=== PATIENT | female | born 1960 | race Two or more races ===

== ENCOUNTER → 2020-11-03 | Outpatient (CLI) | payer OTHER ==
[~2020-11-03] MED LIST: AMLO-150 PO; ATOR20TA37 PO; RABE20TA29 PO
== END | disposition home or self-care (01) ==
LOC: STAR 14:08
PROVIDERS: ATTEND Surgery
DX: Z01.818 Encounter for other preprocedural examination (principal); K40.20 Bilateral inguinal hernia, without obstruction or gangrene, not specified as recurrent; Z20.822 Contact with and (suspected) exposure to COVID-19
CPT/HCPCS: 87635; 93005

== ENCOUNTER 2020-11-09 10:27 | Day surgery (SDC) | payer OTHER ==
[~2020-11-09] VITALS: Ht 152.4 cm; Wt 73.7 kg
[2020-11-09 11:12] VITALS: BP 130/79
[2020-11-09] MEDS ORDERED: ACETAMINOPHEN 500 MG TABLET PO ONE (11:30)
[2020-11-09] MEDS ORDERED: LACTATED RINGERS 1,000 ML IV SCH (11:30)
[2020-11-09] MEDS ORDERED: CHLORHEXIDINE 15 ML UDC MM ONE (11:30)
[2020-11-09] MEDS ORDERED: LABETALOL 5MG/ML, 20ML IV PRN (12:00)
[2020-11-09] MEDS ORDERED: hydrALAzine 20 MG/ML, 1ML IV PRN (12:00)
[2020-11-09] MEDS ORDERED: OXYcodone 5 MG/5 ML ORAL.SOL UDC PO PRN (12:00)
[2020-11-09] MEDS ORDERED: PROMETHAZINE 25 MG/ML, 1ML IVPush PRN (12:00)
[2020-11-09] MEDS ORDERED: ONDANSETRON 2MG/ML, 2ML IVPush PRN (12:00)
[2020-11-09] MEDS ORDERED: EPHEDRINE 50 MG/ML, 1ML IVPush PRN (12:00)
[2020-11-09] MEDS ORDERED: FENTANYL PF 250 MCG/5ML ONE (12:07)
[2020-11-09] MEDS ORDERED: MIDAZOLAM 1 MG/ML, 2ML ONE (12:07)
[2020-11-09] MEDS ORDERED: PROPOFOL 10 MG/ML, 20ML ONE (12:09)
[2020-11-09] MEDS ORDERED: CEFAZOLIN 1,000 MG ONE (12:09)
[2020-11-09] MEDS ORDERED: SUCCINYLCHOLINE 20 MG/ML, 10ML ONE (12:09)
[2020-11-09] MEDS ORDERED: ONDANSETRON 2MG/ML, 2ML ONE (12:09)
[2020-11-09] MEDS ORDERED: DEXAMETHASONE 4 MG/ML, 1ML ONE (12:09)
[2020-11-09] MEDS ORDERED: ROCURONIUM 10MG/ML,5ML ONE (12:09)
[2020-11-09] MEDS ORDERED: EPINEPHRINE 1 MG/ML, 1ML ONE (12:22)
[2020-11-09] MEDS ORDERED: BUPIVACAINE/PF 0.5% ONE (12:22)
[2020-11-09] MEDS ORDERED: KETOROLAC 30 MG/1 ML ONE (12:39)
[2020-11-09] MEDS ORDERED: SUGAMMADEX 200 MG/2 ML IVPush ONE (12:39)
[2020-11-09] MEDS ORDERED: EPHEDRINE 50 MG/ML, 1ML ONE (13:02)
[2020-11-09] MEDS ORDERED: OXYC-302 PO (13:51)
[2020-11-09] MEDS ORDERED: FENTANYL PF 100 MCG/2ML ONE (14:13)
[2020-11-09] MEDS ORDERED: OXYcodone 5 MG/5 ML ORAL.SOL UDC ONE (14:13)
[2020-11-09] MEDS: FENTANYL PF 100 MCG/2ML IV PRN ×2 (14:15→14:20)
[2020-11-09] MEDS ORDERED: HYDROmorphone 1 MG/ML, 1ML INJ ONE (14:18)
[2020-11-09] MEDS: HYDROmorphone 1 MG/ML, 1ML INJ IVPush PRN ×3 (14:26→15:19)
== END 2020-11-09 19:07 | disposition home or self-care (01) ==
LOC: OUT 10:27
PROVIDERS: ATTEND Surgery
DX: K40.20 Bilateral inguinal hernia, without obstruction or gangrene, not specified as recurrent (principal); I10 Essential (primary) hypertension; E78.5 Hyperlipidemia, unspecified; M19.90 Unspecified osteoarthritis, unspecified site; K21.9 Gastro-esophageal reflux disease without esophagitis; Z90.710 Acquired absence of both cervix and uterus; Z79.899 Other long term (current) drug therapy; Z88.5 Allergy status to narcotic agent; Z98.890 Other specified postprocedural states; Z87.891 Personal history of nicotine dependence
CPT/HCPCS: 49650; C1781; J0171; J0330; J0690; J1100; J1170; J1885; J2250; J2405; J2704; J3010; J7120; S2900